=== PATIENT | female | born 1990 | race Caucasian/White ===

== ENCOUNTER 2020-04-30 07:31 | Inpatient (IN) ==
[2020-04-30] MEDS ORDERED: OXYTOCIN 30 UNITS/500 ML BAG IV PRN ×3 (08:15→16:38)
[2020-04-30 08:42] LABS: Hematocrit (blood only) 34.9 % (37-47); Hemoglobin 11.6 g/dL (12.0-16.0); Mean Corpuscular Hemoglobin 29.8 pg (25-34); Mean Corpuscular Hgb Conc 33.2 g/dL (32-36); Mean Corpuscular Volume 89.7 fL (80-100); Mean Platelet Volume 10.3 fL (7.4-10.4); Platelet Count 206 K/uL (130-400); RDW Coefficient of Variation 15.6 % (11.5-14.5); Red Blood Count 3.89 M/uL (4.2-5.4); White Blood Count 8.17 K/uL (4.8-10.8)
[2020-04-30] MEDS: LACTATED RINGER'S 1,000 ML IV PRN ×2 (09:04→13:00)
--- NOTE | 2020-04-30 09:11 | History & Physical Report ---
Date of Service April 30, 2020 Assessment & Plan (1) Post-dates : (2) Encounter for induction of labor: admit, iv, labs. pitocin, plan arom when pattern regular. fhts categ 1. couple aware of plan and desire to proceed. Admission and Anticipated Discharge Date Admission Date: April 30, 2020 History of Present Illness Chief Complaint: planned induction Primary Care Provider: KEVIN Oshea 30yo at 40 4/7wks ega presents to L&D for planned induction. Patient denies ctx, rom, vb. +FM. PNC c/b 1. hypothyroid on meds 2. cf carrier--spouse refuses testing PNL RH POS, ri, gbs neg OBH: x 1 GYNH: nl paps no stds Allergies Allergy/AdvReac Type Severity Reaction Status Date / Time azithromycin Allergy hives Verified 04/29/20 10:29 Penicillins Allergy hives Verified 04/29/20 10:29 Home Medications Medication Instructions Recorded Confirmed Type lactobacillus combination no.8 PO DAILY 04/22/19 04/29/20 History [id number] fum-folic ac-om3 PO 04/24/19 04/29/20 History omeprazole magnesium 20 mg 20 mg PO .COMPLEX tab 09/24/19 04/30/20 History tablet,delayed release levothyroxine 88 mcg tablet 88 mcg PO DAILY #30 tab 02/11/20 04/30/20 Rx Patient History Medical History (Updated 04/30/20 @ 09:10 by Veronica Baum MD, FACOG) Ear ache GERD (gastroesophageal reflux disease) Eden's disease History of acne Hypothyroidism Influenza Palpitations Varicella vaccine Surgical History No pertinent past surgical history Family History Father Depression Brother Diabetes Aunt Diabetes Grandmother (Paternal) Hypertension Grandmother (Maternal) Ovarian cancer Denies family history of Cervical cancer Breast cancer Colorectal cancer Uterine cancer Social History Smoking Status: Never smoker Second Hand Exposure: No; Hx Alcohol Use: No Hx Substance Use: No Preferred Language: Ivorian Beliefs That Will Affect Care: None marital status: marital status details: Martin Craig (32) [phone] Current Living Situation: Spouse Current Living Situation Comment: lives with spouse, 1 rabbit, 2 birds current occupational status: employed current occupation: self employed Feels Safe at Home: Yes Safety Concerns: Feels Safe At This Time Assistive Devices: None Review of Systems as per Subjective / HPI Physical Exam Constitutional: WD/WN, vitals as above Respiratory: normal respiratory effort, lungs clear to auscultation Cardiovascular: Rate/Rhythm: regular rate and regular rhythm Gastrointestinal (Abdomen): soft gravid nt Musculoskeletal: no edema nontender calves Neurologic: grossly normal Psychiatric: A+Ox3, euthymic affect Genitourinary: OB Exam Abdomen: + vertex and + estimated weight (7-8#) OB Exam Monitor Tracing: + external FHT monitor used (150 mod variability), + external uterine monitor used (irreg), + category I and + normal FHT variability SVE yest 3/80/-2 Results & Data ([facility]) Vital Signs (Past 12 Hours) Vital Signs Temp Pulse Resp BP 04/30/20 07:52 98.6 F 18 04/30/20 07:41 108 H 122/88 Coding Level of Care Code None Diagnoses Post-dates O48.0 Encounter for induction of labor Z34.90
[2020-04-30] MEDS ORDERED: ePHEDrine sulfate 50 MG/ML AMP ONE (12:41)
[2020-04-30] MEDS ORDERED: BUPIVACAINE 0.25% 30 ML VIAL ONE ×2 (12:41→13:12)
[2020-04-30] MEDS ORDERED: SODIUM CHLORIDE 0.9% INJ 10 ML VIAL ONE (12:41)
[2020-04-30] MEDS ORDERED: fentaNYL citrate 100 MCG/2 ML VIAL ONE (12:41)
[2020-04-30] MEDS ORDERED: fentaNYL 2MCG/ML ROPIVACAINE 1.25MG/ML 100 ML BAG EPI ONE (12:42)
--- NOTE | 2020-04-30 13:08 | Anesthesiology Consultation ---
Date of Service April 30, 2020 Assessment & Plan (1) Encounter for pre-operative examination: Chart Review Chart Review: Patient NOT seen in Pre Admission Testing and Acceptable Risk for Labor Epidural Consults Requested none ASA ASA3 Proposed Anesthesia Anesthesia Type: Labor Epidural Risk / Benefits Reviewed With: PT / POA / Parent / Guardian, Accepts Plan and Informed Consent Obtained History Height/Weight Height: 5 ft 3 in Weight: 69.853 kg Allergies Allergy/AdvReac Type Severity Reaction Status Date / Time azithromycin Allergy hives Verified 04/29/20 10:29 Penicillins Allergy hives Verified 04/29/20 10:29 Medications Home Medications Medication Instructions Recorded Confirmed Last Taken lactobacillus combination no.8 PO DAILY 04/22/19 04/29/20 04/30/20 [id number] fum-folic ac-om3 PO 04/24/19 04/29/20 Unknown omeprazole magnesium 20 mg 20 mg PO .COMPLEX tab 09/24/19 04/30/20 Unknown tablet,delayed release levothyroxine 88 mcg tablet 88 mcg PO DAILY #30 tab 02/11/20 04/30/20 04/30/20 Active Medications Generic Name Dose Route Start Last Admin Trade Name Freq PRN Reason Stop Dose Admin Oxytocin 30 units in 500 mls @ 5 mls/hr 04/30/20 08:15 04/30/20 11:20 Pitocin IV 05/02/20 08:14 0.3 units/hr .Q24H PRN 5 mls/hr Labor Induction/Augmentation Titration Protocol 0.3 UNITS/HR Lactated Ringer's 1,000 mls @ 125 mls/hr 04/30/20 08:15 04/30/20 13:00 Lr IV 05/02/20 08:14 125 mls/hr .Q8H PRN Administration L&D Protocol Protocol NPO Date Last Intake of Fluids: 04/30/20 Time Last Intake of Fluids: 13:05 Date Last Intake of Solids: 04/30/20 Time Last Intake of Solids: 07:00 Past Medical History Medical History (Updated 04/30/20 @ 13:06 by Rachele Stack MD) Ear ache GERD (gastroesophageal reflux disease) Eden's disease History of acne Hypothyroidism Influenza Palpitations Varicella vaccine Exercise / Class Metabolic Activity II 4-5 Yardwork/Stairs/Walk up hill Past Family History Family History Father Depression Brother Diabetes Aunt Diabetes Grandmother (Paternal) Hypertension Grandmother (Maternal) Ovarian cancer Denies family history of Cervical cancer Breast cancer Colorectal cancer Uterine cancer Past Surgical History Surgical History No pertinent past surgical history Past Anesthesia History No Family Hx of Anesthesia Complications History of PONV Hx of Motion Sickness Social History Smoking Status: Never smoker Hx Alcohol Use: No Hx Substance Use: No substance use type: does not use Review of Systems Negative for chest pain or shortness of breath. Patient denies numbness, tingling or weakness in lower extremities. Patient denies history of abnormal bleeding or bleeding disorder. Patient denies active use of anticoagulants other than low dose aspirin. Physical Exam Vital Signs Last Vital Signs Temp 36.9 C 04/30/20 13:00 Pulse 81 04/30/20 13:02 Resp 20 04/30/20 13:00 BP 126/83 04/30/20 13:02 Pulse Ox 99 04/30/20 13:02 ENMT Mouth: no TMJ abnormality and oral opening not small Neck normal visual inspection; neck extension not limited Respiratory normal respiratory effort Auscultation: lungs clear to auscultation bilaterally Cardiovascular Rate/Rhythm: regular rate and regular rhythm Heart Sounds: no murmur Neurologic moves all extremities Psychiatric Orientation: alert and oriented x 3 Testing Laboratory Results 04/30/20 08:24
[2020-04-30] MEDS ORDERED: ONDANSETRON INJ 2 MG/ML 2 ML VIAL IV PRN (13:35)
[2020-04-30] MEDS ORDERED: NALOXONE HCL 0.4 MG/1 ML VIAL/CARP IV PRN (13:35)
[2020-04-30] MEDS ORDERED: ePHEDrine sulfate 50 MG/ML AMP IV PRN (13:35)
[2020-04-30] MEDS ORDERED: NALOXONE HCL 1 MG in SODIUM CHLORIDE 0.9% 1000ML 1,000 ML IV PRN (13:35)
[2020-04-30] MEDS ORDERED: diphenhydrAMINE 50 MG/ML VIAL IV PRN (13:35)
[2020-04-30] MEDS ORDERED: fentaNYL 2MCG/ML ROPIVACAINE 1.25MG/ML 100 ML BAG EPI PRN (13:35)
--- NOTE | 2020-04-30 13:43 | Labor Progress Brief Note ---
Date of Service April 30, 2020 Subjective Reason For Note: Routine Evaluation pt just had epidural placed, feels relief, fetus with variable decels with last few ctx and she feels pressure Assessment & Plan (1) Post-dates : (2) Encounter for induction of labor: begin 2nd stage soon. Admission and Anticipated Discharge Date Admission Date: April 30, 2020 Physical Exam Constitutional: WD/WN, vitals as above Genitourinary: Manual OB Exam: + cervical dilation (rim), + cervical effacement 100% and + station + 1 OB Exam Monitor Tracing: + external FHT monitor used (140 variables, mod variability), + external uterine monitor used (q2), + category II and + normal FHT variability Results & Data ([facility]) Vital Signs (Past 12 Hours) Vital Signs Temp Pulse Resp BP Pulse Ox 04/30/20 13:41 90 107/55 L 04/30/20 13:39 96 H 107/56 L 04/30/20 13:37 92 H 113/58 L 100 04/30/20 13:35 74 110/59 L 04/30/20 13:34 80 111/60 04/30/20 13:33 64 108/55 L 04/30/20 13:32 75 99 04/30/20 13:31 80 116/59 L 04/30/20 13:29 82 117/59 L 04/30/20 13:27 86 99 04/30/20 13:26 93 H 125/64 04/30/20 13:25 114 H 131/66 04/30/20 13:23 77 124/66 04/30/20 13:22 80 97 04/30/20 13:21 69 121/61 04/30/20 13:17 73 98 04/30/20 13:12 81 99 04/30/20 13:07 78 98 04/30/20 13:02 81 126/83 99 04/30/20 13:00 98.4 F 20 04/30/20 12:57 78 98 04/30/20 12:52 79 98 04/30/20 12:47 111 H 99 04/30/20 12:42 98 H 99 04/30/20 12:37 89 100 04/30/20 12:32 75 100 04/30/20 12:30 22 04/30/20 12:27 91 H 100 04/30/20 12:20 98.4 F 04/30/20 12:17 68 128/75 04/30/20 12:00 18 04/30/20 11:30 20 04/30/20 11:00 16 04/30/20 10:46 90 120/72 04/30/20 10:30 18 04/30/20 10:00 20 04/30/20 09:31 85 121/80 04/30/20 09:30 18 04/30/20 09:00 18 04/30/20 08:30 18 04/30/20 08:10 18 04/30/20 07:52 98.6 F 18 04/30/20 07:41 108 H 122/88 Coding Level of Care Code None Diagnoses Post-dates O48.0 Encounter for induction of labor Z34.90
--- NOTE | 2020-04-30 14:02 | Labor Progress Brief Note ---
Date of Service April 30, 2020 Subjective Reason For Note: Other pt feels pressure Assessment & Plan (1) Encounter for induction of labor: (2) Post-dates : cont 2nd stage. fhts categ 2 Admission and Anticipated Discharge Date Admission Date: April 30, 2020 Physical Exam Genitourinary: Manual OB Exam: + cervical dilation (rim, reduced with 2 pushes) OB Exam Monitor Tracing: + external FHT monitor used (130 mod variability), + external uterine monitor used (q3-4), + category II, + normal FHT variability and + variable decelerations variables occas, not as deep Results & Data ([facility]) Vital Signs (Past 12 Hours) Vital Signs Temp Pulse Resp BP Pulse Ox 04/30/20 13:57 98 H 100 04/30/20 13:56 100 H 130/75 04/30/20 13:52 108 H 100 04/30/20 13:51 88 125/70 82 L 04/30/20 13:49 102 H 124/71 04/30/20 13:47 103 H 117/70 100 04/30/20 13:45 108 H 112/60 04/30/20 13:43 83 110/57 L 04/30/20 13:42 80 100 04/30/20 13:41 90 107/55 L 04/30/20 13:39 96 H 107/56 L 04/30/20 13:37 92 H 113/58 L 100 04/30/20 13:35 74 110/59 L 04/30/20 13:34 80 111/60 04/30/20 13:33 64 108/55 L 04/30/20 13:32 75 99 04/30/20 13:31 80 116/59 L 04/30/20 13:30 22 04/30/20 13:29 82 117/59 L 04/30/20 13:27 86 99 04/30/20 13:26 93 H 125/64 04/30/20 13:25 114 H 131/66 04/30/20 13:23 77 124/66 04/30/20 13:22 80 97 04/30/20 13:21 69 121/61 04/30/20 13:17 73 98 04/30/20 13:12 81 99 04/30/20 13:07 78 98 04/30/20 13:02 81 126/83 99 04/30/20 13:00 98.4 F 20 04/30/20 12:57 78 98 04/30/20 12:52 79 98 04/30/20 12:47 111 H 99 04/30/20 12:42 98 H 99 04/30/20 12:37 89 100 04/30/20 12:32 75 100 04/30/20 12:30 22 04/30/20 12:27 91 H 100 04/30/20 12:20 98.4 F 04/30/20 12:17 68 128/75 04/30/20 12:00 18 04/30/20 11:30 20 04/30/20 11:00 16 04/30/20 10:46 90 120/72 04/30/20 10:30 18 04/30/20 10:00 20 04/30/20 09:31 85 121/80 04/30/20 09:30 18 04/30/20 09:00 18 04/30/20 08:30 18 04/30/20 08:10 18 04/30/20 07:52 98.6 F 18 04/30/20 07:41 108 H 122/88 Coding Level of Care Code None Diagnoses Encounter for induction of labor Z34.90 Post-dates O48.0
[2020-04-30] MEDS ORDERED: miSOPROStoL 200 MCG TAB ONE (15:55)
--- NOTE | 2020-04-30 16:35 | Delivery Summary ---
Vaginal Delivery Summary Date of Service April 30, 2020 The patient dilated to complete and pushed to deliver a viable female infant Ap gars 8 and 9 via over 2nd degree perineal laceration. Mouth and nose bulb suctioned at perineum. Loose nuchal cord reduced with ease. Shoulders and body delivered with ease. Infant was vigorous and crying at . Cord clamped at 20 seconds of life and to maternal abdomen where the cord was then doubly clamped and cut. Placenta delivered spontaneously and intact, three-vessel cord. Hemostasis not achieved with dilute pitocin and uterine massage and therefore 800mcg rectal cytotec given. Bladder had recently been drained. Uterine tone with bimanual exam was good but bleeding continued. Began to repair labial laceration sites at hymenal ring as suspected source but with continued bleeding suspected cervical laceration. Difficult visualization with speculum and cx grasped with ring forceps. Interrupted sutures of 3-0 vicryl placed at approx 4 o'clock on cx and with 3rd suture bleeding finally slowed. Remainder of 2nd degree and labial lacerations repaired with 3-0 vicryl. No sulcal tears noted. EBL 700 cc. Mother and baby stable recovery. Vitals were stable. Patient tolerated all well. [facility] Vaginal Delivery Charge Vaginal Delivery Codes: 91935 global code for the antepartum, delivery, and post-
[2020-04-30] MEDS ORDERED: oxyCODONE/ACETAMINOPHEN 5mg/325mg TAB PO PRN (16:38)
[2020-04-30] MEDS ORDERED: OXYTOCIN 20 UNITS in LACTATED RINGER'S 1,000 ML IV SCH (16:45)
[2020-04-30] MEDS ORDERED: HYDROCORTISONE ACETATE 25 MG SUPP PR PRN (16:51)
[2020-04-30] MEDS ORDERED: SUPERCREAM 0.870% 15 GM JAR EXT PRN (16:51)
[2020-04-30] MEDS ORDERED: DIPHTHERIA/TETANUS/PERTUSSIS 0.5 ML SYR/VIAL IM ONE (16:51)
[2020-04-30] MEDS ORDERED: miSOPROStoL 200 MCG TAB PR ONE (16:51)
[2020-04-30] MEDS ORDERED: BENZOCAINE 20% AER SPR 82.5 GM CAN EXT PRN (16:51)
[2020-04-30] MEDS: IBUPROFEN 600 MG TAB PO PRN (19:05)
--- NOTE | 2020-04-30 20:18 | Anesthesia Procedure Note ---
Date of Service April 30, 2020 Anesthesia Post Epidural Note Vital Signs Vital Signs: Temp Pulse Resp BP Pulse Ox 37.4 C 123 H 16 116/70 100 04/30/20 18:18 04/30/20 19:18 04/30/20 18:48 04/30/20 19:18 04/30/20 16:37 Notes Mental Status: alert / awake / arousable and participated in evaluation Nausea / Vomiting: adequately controlled Pain: adequately controlled Airway Patency, RR, SpO2: stable & adequate BP & HR: stable & adequate Hydration State: stable & adequate Neuraxial Anesthesia: was administered and sensory block is resolving Anesthetic Complications: no major complications apparent and Pt Satisfied with anesthetic care Epidural: Removed without complications and With tip intact Notes: Epidural site clean, dry and intact. No signs of edema, erythema or bruising at insertion site. Pt instructed to request anesthesia if she has residual lower extremity numbness or if she develops lower extremity pain or weakness, back pain or headache.
[2020-04-30] MEDS: DOCUSATE SODIUM 100 MG CAP PO SCH (20:44)
[2020-05-01] MEDS: IBUPROFEN 600 MG TAB PO PRN ×4 (00:33→20:30)
[2020-05-01] MEDS: LEVOTHYROXINE SODIUM 88 MCG TABLET PO SCH (06:23)
--- NOTE | 2020-05-01 06:29 | Obstetrical Progress Note ---
Date of Service <Iftikhar Solis MD - Last Filed: 05/01/20 07:41> May 01, 2020 Assessment & Plan <Iftikhar Solis MD - Last Filed: 05/01/20 07:41> (1) Encounter for induction of labor: A/P: Lisseth Craig is a 30 y/o female on PPD#1 following planned IOL at 40+4 weeks. * Patient feels well today; eating well, voiding well, ambulating well * Pain well-controlled with ibuprofen 600mg q4h prn * PNL: Rh pos, RI, GBS neg, COVID neg * Routine postcesarean care: OOB, ambulation, diet progression as tolerated * After discharge, will have six-week follow-up with Dr. Baum Subjective <Iftikhar Solis MD - Last Filed: 05/01/20 07:41> Ambulation: ambulating normally Voiding: no voiding problems Passing Gas:: Yes Diet Tolerance:: regular diet Lochia:: Small Lisseth Craig is a 30 y/o female on PPD#1 following planned IOL at 40+4 weeks. She reports feeling well overall this morning. Minimal abdominal cramping and 1/10 pain well managed on analgesics. Voiding well. Tolerating meals overnight without difficulty. Patient has been able to ambulate some. Has persistent lochia with some improvement this morning. Currently . Constitutional: no fever and no chills Respiratory: no cough and no dyspnea Cardiovascular: no chest pain, no palpitations and no edema Gastrointestinal: no nausea and no vomiting Genitourinary (female): no dysuria Physical Exam <Iftikhar Solis MD - Last Filed: 05/01/20 07:41> General: alert, oriented, no acute distress Cardiac: regular rate and rhythm, no murmurs appreciated Respiratory: lungs clear to auscultation bilaterally a/p, no wheezes/rales/rhonchi, no increased work of breathing, symmetrical chest rise, no respiratory distress Abdomen: soft, minimally tender, nondistended, bowel sounds present Uterus: uterine fundus firm, palpable 2 cm below umbilicus Lower extremities: no lower extremity edema or swelling, no deep calf pain, Live's negative bilaterally Constitutional no acute distress Respiratory normal respiratory effort, lungs clear to auscultation Cardiovascular RRR, no murmur, no edema Gastrointestinal (Abdomen) Inspection/Auscultation: normal bowel sounds Percussion/Palpation: abdomen soft Results & Data ([facility]) <Iftikhar Solis MD - Last Filed: 05/01/20 07:41> Vital Signs (Past 12 Hours) Vital Signs Temp Pulse Pulse Resp BP BP Pulse Ox 05/01/20 04:40 36.8 C 88 16 120/70 97 05/01/20 00:00 36.8 C 102 H 17 133/81 97 04/30/20 20:45 37.1 C 99 H 17 132/80 97 04/30/20 19:18 123 H 116/70 04/30/20 19:03 116 H 125/73 04/30/20 18:48 118 H 16 127/72 04/30/20 18:33 114 H 134/72 <Veronica Baum MD, FACOG - Last Filed: 05/01/20 07:51> Co-Signing Physician Notes Resident Physician Supervision Note: I was present with Dr. Solis during the history and exam. I discussed the case with the resident and agree with the findings and plan as documented in the note. Any exceptions or clarifications are listed here: doing well, routine pp care, rhpos, ri, breast feeding. Documented By: Veronica Baum MD, FACOG Resident Activity Tracking <Iftikhar Solis MD - Last Filed: 05/01/20 07:41> Resident Involvement: Resident Care Provided Care Provided: OB Delivery
[2020-05-01 07:52] LABS: Hematocrit (blood only) 26.4 % (37-47); Hemoglobin 8.5 g/dL (12.0-16.0)
[2020-05-01] MEDS: DOCUSATE SODIUM 100 MG CAP PO SCH ×2 (07:57→20:31)
[2020-05-01] MEDS ORDERED: PANTOprazole 40 MG TAB PO SCH (09:00)
[2020-05-01] MEDS: ACETAMINOPHEN 325 MG TAB PO PRN ×2 (11:01→18:50)
[2020-05-02] MEDS: IBUPROFEN 600 MG TAB PO PRN ×2 (00:04→08:17)
[2020-05-02] MEDS: ACETAMINOPHEN 325 MG TAB PO PRN (02:47)
[2020-05-02] MEDS ORDERED: diphenhydrAMINE Capsule 25 MG CAP PO ONE (03:03)
--- NOTE | 2020-05-02 05:22 | Obstetrical Progress Note ---
Date of Service <Iftikhar Solis MD - Last Filed: 05/02/20 07:06> May 02, 2020 Assessment & Plan <Iftikhar Solis MD - Last Filed: 05/02/20 07:06> (1) Encounter for induction of labor: A/P: Lisseth Craig is a 30 y/o female on PPD#2 following elective induction at 40+4 weeks. * Patient feels well today; eating well, voiding well, ambulating well * Pain well-controlled with ibuprofen 600mg q4h prn * PNL: Rh pos, RI, GBS neg, COVID neg * Routine postcesarean care: OOB, ambulation, diet progression as tolerated * After discharge, will have six-week follow-up with Dr. aBum Subjective <Iftikhar Solis MD - Last Filed: 05/02/20 07:06> Lisseth Craig is a 30 y/o female on PPD#2 following induction at 40+4 weeks. She reports feeling well overall this morning. Minimal abdominal cramping and 2/10 pain well managed on analgesics. Voiding well. Tolerating meals overnight without difficulty. Patient has been able to ambulate some. Has persistent lochia with some improvement this morning. Currently + supplementing. Denies fever or chills. Denies cough or shortness of breath. Denies chest pain. Denies dysuria. Denies leg pain. Denies headache or changes in vision. Physical Exam <Iftikhar Solis MD - Last Filed: 05/02/20 07:06> General: alert, oriented, no acute distress Cardiac: regular rate and rhythm, no murmurs appreciated Respiratory: lungs clear to auscultation bilaterally a/p, no wheezes/rales/rhonchi, no increased work of breathing, symmetrical chest rise, no respiratory distress Abdomen: soft, minimally tender, nondistended, bowel sounds present Uterus: uterine fundus firm palpable to the left of her umbilicus Lower extremities: no lower extremity edema or swelling, no deep calf pain, Live's negative bilaterally Results & Data ([facility]) <Iftikhar Solis MD - Last Filed: 05/02/20 07:06> Vital Signs (Past 12 Hours) Vital Signs Temp Pulse Resp BP 05/01/20 23:20 37 C 80 18 125/79 05/01/20 20:15 37.0 C 90 18 131/79 <Pavithra Bryan MD - Last Filed: 05/02/20 07:28> Co-Signing Physician Notes I have reviewed the resident's note and examined the patient myself, and agree with the note above except where it notes that this patient had "elective" induction (it was medically indicated for postdates) and "postcesarean care" as she had a VAGINAL delivery. Resident Activity Tracking <Iftikhar Solis MD - Last Filed: 05/02/20 07:06> Resident Involvement: Resident Care Provided Care Provided: OB Delivery
[2020-05-02] MEDS: LEVOTHYROXINE SODIUM 88 MCG TABLET PO SCH (06:19)
[2020-05-02] MEDS: DOCUSATE SODIUM 100 MG CAP PO SCH (08:17)
== END 2020-05-02 11:45 | disposition home or self-care (01) | DRG 768 ==
LOC: 4S1 07:31 → 4S2 20:58